=== PATIENT | female | born 1965 | race Caucasian/White ===

== ENCOUNTER → 2017-04-21 | Outpatient (CLI) | payer OTHER ==
--- NOTE | 2017-04-21 15:30 | DIAGNOSTIC IMAGING REPORT ---
CERVICAL FLEX/EXT CSF CLINICAL HISTORY: 51 years-old Female presenting with INCREASED CRANIAL PRESSURE. TECHNIQUE: Multisequence, multiplanar MR imaging of the cervical spine was performed without the use of intravenous contrast in flexion and extension positioning with assessment of CSF flow. IV contrast: None. COMPARISON: None. FINDINGS: Localizer images: Unremarkable. In neutral positioning, reversal of normal cervical lordosis. Vertebral bodies otherwise maintain normal height and alignment. Intervertebral disc heights are preserved although disc osteophyte complex noted at C5-6 with smaller disc osteophyte complexes at the remaining levels. At C5-6, effacement of the anterior thecal sac most severe centrally and in the left lateral recess with contouring of the spinal cord. No neural foraminal narrowing. The spinal cord maintains normal signal intensity. Craniocervical junction normal. Paraspinal soft tissues within normal limits. Dedicated flow imaging in neutral positioning demonstrates slightly diminished flow posteriorly but normal flow anteriorly on flexion positioning, essentially normal CSF flow is noted both anteriorly and posteriorly. On extension positioning, minimal further diminishment in the posterior flow is suggested. Essentially unchanged anterior flow. Anatomic imaging also corroborates minimal diminished CSF anterior and posterior to the cervical spinal cord at the mildly stenotic level of C5-6 on extension positioning. 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 Electronically signed by: Shaan Gagnon M.D. 04/21/2017 3:29 PM Dictated Date/Time: 04/21/2017 3:20 PM
== END | disposition home or self-care (01) ==
LOC: C.MRIBC 13:09
PROVIDERS: ATTEND Neurological Surgery
DX: G93.2 Benign intracranial hypertension (principal)

== ENCOUNTER → 2017-11-25 | Outpatient (CLI) | payer OTHER ==
--- NOTE | 2017-11-25 15:48 | DIAGNOSTIC IMAGING REPORT ---
MRI THE CERVICAL SPINE WITH FLEXION-EXTENSION VIEWS AND CSF FLOW STUDY. CLINICAL HISTORY: PAPILLEDEMA increased intracranial pressure, headache. COMPARISON STUDY: 04/21/2017 FINDINGS: Axial and sagittal images were obtained in the neutral position, flexion, and extension. In addition a CSF flow study was performed. C2-3 level: There is no evidence of disc bulge or focal herniation. There is no evidence of spinal or foraminal stenosis. C3-4 level: There is no evidence of disc bulge or focal herniation. There is no evidence of spinal or foraminal stenosis. C4-5 level: There is no evidence of disc bulge or focal herniation. There is no evidence of spinal or foraminal stenosis. C5-6 level: There is a disc osteophyte complex with mild spinal canal narrowing, most pronounced in extension. There is mild left-sided foraminal narrowing. C6-7 level: There is no evidence of disc bulge or focal herniation. There is no evidence of spinal or foraminal stenosis C7-T1 level: There is no evidence of disc bulge or focal herniation. There is no evidence of spinal or foraminal stenosis. Since the prior study, the patient is undergone a suboccipital craniotomy. There is minimally diminished CSF flow both ventral and dorsal to C5-6 level. The findings remain similar to the preceding study. There is a 17 mm cystic collection at the level the suboccipital craniotomy posterior to the cord and dural sac, likely postsurgical. 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 IMPRESSION: 1. Interval suboccipital craniotomy with a 17 mm postsurgical fluid collection at the surgical site 2. 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 Stable C5-C6 disc osteophyte complex with secondary mild spinal canal narrowing 4. Minimally diminished CSF flow at the C5-6 level both ventrally and dorsally. This finding remains stable. Electronically signed by: Derick Swift M.D. 11/25/2017 3:47 PM Dictated Date/Time: 11/25/2017 3:34 PM
== END | disposition home or self-care (01) ==
LOC: C.MRIBC 13:34
PROVIDERS: ATTEND Nurse Practitioner Family
DX: H47.10 Unspecified papilledema (principal); M25.78 Osteophyte, vertebrae